=== PATIENT | female | born 1960 | race African-American/Black ===

== ENCOUNTER 2016-08-15 15:31 | Emergency (ER) | payer MEDICAID ==
[~2016-08-15] VITALS: Ht 167.6 cm; Wt 127.0 kg
[~2016-08-15 15:31] MED LIST: ALBUTEROL SULF8.5 GM INH; AMOXICILLIN500 M1 PO; AMOXICILLIN500 MG ORAL; ATORVASTATIN CA10 MG ORAL; AZITHROMYCIN250 MG ORAL; BENAZEPRIL HCL10 MG ORAL; BENAZEPRIL HCL20 MG ORAL; DOXYCYCLINE MO100 MG ORAL; FUROSEMIDE20 M1 ORAL; IBUPROFEN600 MG ORAL; KEFLEX500 MG ORAL; MEDICOOL'S DIA1 EAC1 MC; NAPROSYN500 M1 ORAL; NEXIUM20 MG ORAL; PHENERGAN/CODE120 ML ORAL; TRAMADOL HCL50 MG ORAL; ZITHROMAX250 MG ORAL
[2016-08-15 15:44] VITALS: BP 147/86
--- NOTE | 2016-08-15 16:18 | Emergency Room Report ---
History of Present Illness General Chief Complaint: Upper Respiratory Illness Source: Patient Present Illness [facility] The patient is a 55-year-old female presenting with 3 days of dry cough, right ear pain, subjective fever, and chest congestion which began 3 days prior. The patient denies any other symptoms. The patient denies chest pain, shortness of breath, nausea, vomiting, headache Allergies: Coded Allergies: No Known Allergies (Verified Allergy, Unknown, 05/30/10) Patient History Past Medical History: see triage record Pertinent Family History: none Now: No Reviewed Nursing Documentation: PMH: Agreed, PSxH: Agreed Nursing Documentation-PMH Hx Cardiac Problems: No Hx Hypertension: Yes Hx Asthma: No - BRONCHITIS Hx Cancer: Yes - Dbl masectomy Breast Hx Gastrointestinal Problems: No Hx Dialysis: No Hx Neurological Problems: No Review of Systems All Other Systems: negative except mentioned in HPI Physical Exam Vital Signs Date Time Temp Pulse Resp B/P Pulse Ox O2 Delivery O2 Flow Rate FiO2 08/15/16 15:39 98.2 75 19 147/86 97 Room Air Sp02 EP Interpretation: reviewed, normal General Appearance: no apparent distress, alert, GCS 15, non-toxic Head: normocephalic, atraumatic Eyes: bilateral eye PERRL, bilateral eye normal inspection ENT: hearing grossly normal, normal pharynx, no angioedema, normal voice, other - R ear EAC: edema, erythema, white DC Neck: full range of motion, supple/symm/no masses Respiratory: chest non-tender, lungs clear, normal breath sounds, no wheezing, speaking full sentences Cardiovascular #1: regular rate, rhythm, no edema Gastrointestinal: normal bowel sounds, non tender, soft, non-distended, no guarding, no rebound Musculoskeletal: back normal, gait/station normal, normal range of motion, non- tender Neurologic: alert, oriented x3, responsive, motor strength/tone normal, sensory intact, speech normal Psychiatric: judgement/insight normal, memory normal, mood/affect normal, no suicidal/homicidal ideation Skin: normal color, no rash, warm/dry, well hydrated Medical Decision Making PA Attestation Dr. Bañuelos is my supervising physician. Patient management was discussed with my supervising physician Diagnostic Impression: Primary Impression: Otitis externa of right ear Additional Impression: Allergic rhinitis ER Course The patient is a 55-year-old female presenting with 3 days of dry cough, right ear pain, subjective fever, and chest congestion which began 3 days prior. Differential diagnosis include but not limited to otitis externa, otitis media, mastoiditis, sinusitis, pharyngitis, allergies PE:Vitals within normal limits. No apparent distress. Right ear: External auditory canal is edematous, erythematous, with white discharge. Tympanic membranes intact. No bulging There is nasal congestion. Lungs clear to auscultation bilaterally Otherwise exam unremarkable The patient is asking for breathing treatments. No change in breath sounds after treatment. The patient will be discharged home with a prescription for Cortisporin and Claritin. ER precautions are given Last Vital Signs Date Time Temp Pulse Resp B/P Pulse Ox O2 Delivery O2 Flow Rate FiO2 08/15/16 15:39 98.2 75 19 147/86 97 Room Air Status: improved Disposition: HOME, SELF-CARE Condition: Improved Scripts Neomycin/Polymyxin B Sulf/Hc* (CORTISPORIN EAR SOLUTION*) 10 Ml Solution 4 DROP RIGHT EAR QID, #10 ML 0 Refills Prov: FRANCIE ZARAGOZA 08/15/16 Loratadine/Pseudoephedrine (CLARITIN-D 24 HOUR TABLET) 1 Each Tab.er.24h 1 TAB PO DAILY, #30 TAB Prov: RFANCIE ZARAGOZA 08/15/16 Referrals: NOT CHOSEN BYRON/,REFERRING (PCP) FRANCIE ZARAGOZA Aug 15, 2016 16:18
[2016-08-15] MEDS ORDERED: Albuterol ud Inhalation HHN ONE (16:30)
[2016-08-15] MEDS ORDERED: Ipratropium 0.02% Inh Soln 2.5ml UD HHN ONE (16:30)
[2016-08-15] MEDS ORDERED: CORTISPORIN EAR10 ML RIGHT EAR (16:57)
[2016-08-15] MEDS ORDERED: CLARITIN-D 241 EACH PO (16:57)
[2016-08-15 17:05] VITALS: BP 139/89
[2016-08-15 17:06] VITALS: BP 147/86
== END 2016-08-15 17:06 | disposition home or self-care (01) ==
LOC: EMR 16:02
DX: H60.91 Unspecified otitis externa, right ear (principal); J30.9 Allergic rhinitis, unspecified; I10 Essential (primary) hypertension; Z85.3 Personal history of malignant neoplasm of breast; Z90.13 Acquired absence of bilateral breasts and nipples
CPT/HCPCS: 94640; 94664; 99284

== ENCOUNTER 2016-08-25 12:49 | Emergency (ER) | payer MEDICAID ==
[~2016-08-25] VITALS: Ht 167.6 cm; Wt 130.2 kg
[~2016-08-25 12:49] MED LIST changes: +CLARITIN-D 241 EACH PO; +CORTISPORIN EAR10 ML RIGHT EAR
[2016-08-25 13:06] VITALS: BP 160/84
[2016-08-25] MEDS ORDERED: Bacitracin Oint UD TOPIC ONE (13:15)
[2016-08-25] MEDS ORDERED: ACETAMINOPHEN-1 EAC1 ORAL (13:20)
--- NOTE | 2016-08-25 13:24 | Emergency Room Report ---
History of Present Illness General Chief Complaint: Head, Face, Neck Trauma Source: Medical Record Present Illness HPI The patient is a 55-year-old female presenting with a scalp laceration. The patient states that she was walking down the stairs, slipped, and hit the back of her head on a brick. The patient denies loss of consciousness, blurred vision, or dizziness. The patient does admit to a 9/10 pounding headache to the rear of the head. The patient states that she has taken Aleve with only minimal relief of the pain. The patient denies taking any blood thinners including aspirin. Patient denies prior injury of the head. The patient denies nausea, vomiting, fever, chills, chest pain, shortness of breath The patient is up-to-date with tetanus vaccination Allergies: Coded Allergies: No Known Allergies (Verified Allergy, Unknown, 05/30/10) Patient History Past Medical History: see triage record Pertinent Family History: none Last Menstrual Period: post Now: No : 1 Para: 1 Immunizations: UTD Reviewed Nursing Documentation: PMH: Agreed, PSxH: Agreed Nursing Documentation-PMH Past Medical History: No History, Except For Hx Cardiac Problems: No Hx Hypertension: Yes Hx Asthma: No - BRONCHITIS Hx Cancer: Yes - Dbl masectomy Breast Hx Gastrointestinal Problems: No Hx Dialysis: No Hx Neurological Problems: No Review of Systems All Other Systems: negative except mentioned in HPI Physical Exam Vital Signs Date Time Temp Pulse Resp B/P Pulse Ox O2 Delivery O2 Flow Rate FiO2 08/25/16 13:02 98.2 72 22 160/84 97 Room Air Sp02 EP Interpretation: reviewed, normal General Appearance: no apparent distress, alert, GCS 15, non-toxic Head: normocephalic, other - laceration to posterior scalp Eyes: bilateral eye PERRL, bilateral eye normal inspection ENT: hearing grossly normal, normal pharynx, no angioedema, normal voice Neck: full range of motion, supple/symm/no masses Musculoskeletal: back normal, gait/station normal, normal range of motion, non- tender Neurologic: alert, oriented x3, responsive, motor strength/tone normal, sensory intact, speech normal Psychiatric: judgement/insight normal, memory normal, mood/affect normal, no suicidal/homicidal ideation Skin: warm/dry, palpation normal, laceration - 3cm linear to posterior scalp Lymphatic: no adenopathy Procedures Laceration/Wound Repair Laceration/Wound Repair : Consent: Verbal Wound Location: head Wound's Depth, Shape: superficial Wound Length (cm): 3 Wound Explored: clean Irrigated w/ Saline (ccs): 100 Betadine Prep?: Yes Volume Anesthetic (ccs): 0 Wound Debrided: minimal Wound Repaired With: francois Layer Closure?: No Sterile Dressing Applied?: No Splint Applied?: No Sling Applied?: No Patient Tolerated: Well Complications: None Medical Decision Making PA Attestation Dr. Gracia is my supervising physician. Patient management was discussed with my supervising physician Diagnostic Impression: Primary Impression: Scalp laceration ER Course The patient is a 55-year-old female presenting with a laceration to the posterior scalp after falling today. Differential diagnosis considered: Laceration, contusion, fracture, concussion PE: Vitals WNL. NAD. Head: 3cm linear laceration over posterior scalp. No ecchymosis. No depression. Minimal bleeding. No other signs of trauma. 3cm linear laceration over posterior scalp cleaned with NS and betadine. three francois were used to close the wound. Well approximated. The patient tolerated this well.Bacitracin was placed The patient will follow up with primary care physician in 10 days for wound check and staple removal. ER precautions are given Last Vital Signs Date Time Temp Pulse Resp B/P Pulse Ox O2 Delivery O2 Flow Rate FiO2 08/25/16 13:06 98.2 72 22 160/84 97 Room Air Status: improved Disposition: HOME, SELF-CARE Condition: Improved Scripts Acetaminophen With Codeine (T#3) (TYLENOL #3 TAB*) Y Tab 1 TAB ORAL Q6HR Y for For Pain, #8 TAB Prov: FRANCIE ZARAGOZA 08/25/16 Patient Instructions: Stitches, Bittinger, or Adhesive Wound Closure Additional Instructions: I discussed my findings with the patient. All questions and concerns have been answered. Treatment and medication compliance have been addressed. I advised the patient that they need to follow up with PMD in 3-5 days. Return to ED if symptoms worsen, new symptoms arise, or if needed for any reason. Patient verbalized understanding of discharge instructions. The patient is advised she needs to follow up with primary care physician or return to the ER in 10 days for removal of francois and wound check. The patient will keep the wound clean and dry. FRANCIE ZARAGOZA Aug 25, 2016 13:24
[2016-08-25 13:32] VITALS: BP 160/84
== END 2016-08-25 13:30 | disposition home or self-care (01) ==
LOC: EMR 13:27
DX: S01.01XA Laceration without foreign body of scalp, initial encounter (principal); W10.9XXA Fall (on) (from) unspecified stairs and steps, initial encounter; Y92.9 Unspecified place or not applicable; I10 Essential (primary) hypertension; Z85.3 Personal history of malignant neoplasm of breast; Z90.10 Acquired absence of unspecified breast and nipple
CPT/HCPCS: 12002; 99284; Z7502

== ENCOUNTER 2016-09-02 21:20 | Emergency (ER) | payer MEDICAID ==
[~2016-09-02] VITALS: Ht 160 cm; Wt 93.0 kg
[~2016-09-02 21:20] MED LIST changes: +ACETAMINOPHEN-1 EAC1 ORAL
[2016-09-02 21:28] VITALS: BP 159/86
--- NOTE | 2016-09-02 21:41 | Emergency Room Report ---
History of Present Illness General Chief Complaint: Pain Source: Patient Present Illness HPI This is a 55-year-old female who presents with chief complaint of left shoulder and out bone pain to she slipped and fell on her buttock a week ago. She was seen here and had CT scan her head. That was negative. Now she complaining of left shoulder pain. Can't lift it up past 90. Also with tailbone pain. Denies any other injury. Has not taken to [place] out or Tylenol with codeine because it upset her stomach. Pain is 7/10. Worse with movement. No nausea no vomiting. No seizure activity. Allergies: Coded Allergies: No Known Allergies (Verified Allergy, Unknown, 05/30/10) Patient History Past Medical History: see triage record, old chart reviewed Past Surgical History: other Pertinent Family History: none Social History: Denies: drug use Now: No Immunizations: other Reviewed Nursing Documentation: PMH: Agreed, PSxH: Agreed Nursing Documentation-PMH Past Medical History: No History, Except For Hx Cardiac Problems: No Hx Hypertension: Yes Hx Asthma: No - BRONCHITIS Hx Cancer: Yes - Dbl masectomy Breast Hx Gastrointestinal Problems: No Hx Dialysis: No Hx Neurological Problems: No Review of Systems Eye: Denies: blurred vision, eye pain ENT: Denies: ear pain, nose congestion, throat swelling Respiratory: Denies: cough, shortness of breath Cardiovascular: Denies: chest pain, palpitations Gastrointestinal: Denies: abdominal pain, diarrhea, nausea, vomiting Musculoskeletal: Reports: joint pain, Denies: back pain Skin: Denies: rash Neurological: Denies: headache, numbness Endocrine: Denies: increased thirst, increased urine Hematologic/Lymphatic: Denies: easy bruising All Other Systems: negative except mentioned in HPI Physical Exam Vital Signs Date Time Temp Pulse Resp B/P Pulse Ox O2 Delivery O2 Flow Rate FiO2 09/02/16 21:25 98.1 82 16 159/86 99 Room Air vitals with hypertension Sp02 EP Interpretation: reviewed, normal General Appearance: well appearing, no apparent distress, alert, obese Head: normocephalic, atraumatic Eyes: bilateral eye EOMI, bilateral eye PERRL ENT: hearing grossly normal, normal pharynx Neck: full range of motion, supple, no meningismus Respiratory: chest non-tender, lungs clear, normal breath sounds Cardiovascular #1: regular rate, rhythm, no murmur Gastrointestinal: normal bowel sounds, non tender, no mass, no organomegaly, no bruit, non-distended Musculoskeletal: back normal, gait/station normal, normal range of motion, other - left shoulder: TTP diffusely. Decreased ROM past 90 degrees. TTP over coccyx. Neurologic: alert, oriented x3 Psychiatric: mood/affect normal Skin: warm/dry Medical Decision Making Diagnostic Impression: Primary Impression: Left shoulder strain Qualified Codes: S46.912A - Strain of unspecified muscle, fascia and tendon at shoulder and upper arm level, left arm, initial encounter Additional Impression: Coccyx contusion Qualified Codes: S30.0XXA - Contusion of lower back and pelvis, initial encounter ER Course Patient presents with a fall last week. No fracture dislocation. We'll discharge home. Other X-Ray Diagnostic Results Other X-Ray Diagnostic Results : X-Ray Ordered: left shoulder xrays Date: Sep 02, 2016 Time: 22:33 EP Interpretation: Yes Findings: no fractures, no dislocation, no soft tissue swelling Number of Views: 3 Other Impression Xrays sacral/coccyx: Interpreted by me. 3 views. No frx, dislocation, STS or FB. Last Vital Signs Date Time Temp Pulse Resp B/P Pulse Ox O2 Delivery O2 Flow Rate FiO2 09/02/16 21:28 98.1 82 16 159/86 99 Room Air Status: improved Disposition: HOME, SELF-CARE Condition: Stable Scripts Ibuprofen* (MOTRIN*) 600 Mg Tablet 600 MG ORAL THREE TIMES A DAY, #30 TAB 0 Refills Prov: TAI BARNARD M.D. 09/02/16 Additional Instructions: Followup with your DrMimi in 7 days. Return for increasing pain, fever, chills, or any concern. TAI BARNARD M.D. Sep 02, 2016 21:41
[2016-09-02 22:30] VITALS: BP 145/75
[2016-09-02] MEDS ORDERED: IBUPROFEN600 MG ORAL (22:34)
[2016-09-02 22:43] VITALS: BP 145/75
--- NOTE | 2016-09-03 11:14 | Diagnostic Imaging Report ---
Indication: Back pain Comparison: None Findings: 3 views of the sacrum and coccyx were obtained. There is asymmetry and slight posterior subluxation of one of the coccygeal segments. This is consistent with an injury but acuity of injury is unknown. The sacroiliac are symmetric. No fracture of the sacrum seen. Impression: Evidence of a coccygeal injury. Acuity of this is unknown. No evidence of a sacral injury.
--- NOTE | 2016-09-03 11:14 | Diagnostic Imaging Report ---
Indication: Pain Findings: 3 views of the left shoulder were obtained. Alignment of the left shoulder is normal. No acute fracture is identified. Soft tissues are unremarkable. Impression: Negative left shoulder examination
== END 2016-09-02 22:43 | disposition home or self-care (01) ==
LOC: EMR 21:40
DX: S46.912A Strain of unspecified muscle, fascia and tendon at shoulder and upper arm level, left arm, initial encounter (principal); S30.0XXA Contusion of lower back and pelvis, initial encounter; W01.0XXA Fall on same level from slipping, tripping and stumbling without subsequent striking against object, initial encounter; Y92.9 Unspecified place or not applicable; Z90.10 Acquired absence of unspecified breast and nipple; I10 Essential (primary) hypertension
CPT/HCPCS: 72220; 99283

== ENCOUNTER 2016-12-30 14:54 | Emergency (ER) | payer MEDICAID ==
[~2016-12-30] VITALS: Ht 167.6 cm; Wt 129.3 kg
[2016-12-30] MEDS ORDERED: HYDROCHLOROTH12.5 M2 ORAL (15:15)
[2016-12-30 16:00] VITALS: BP 153/80
[2016-12-30] MEDS ORDERED: Ketorolac 60mg Inj IM ONE (16:00)
--- NOTE | 2016-12-30 16:02 | Emergency Room Report ---
History of Present Illness General Chief Complaint: Upper Extremity Injury Source: Patient, Medical Record Present Illness HPI [id number] walk in with left shoulder pain, constant, non-radiating, since last night. Atraumatic. No associated fever/chills, chest pain, SOB,abd pain, headache. Has had previously with ED visit showing no acute fx on xray. Taking ibuprofen/tramadol at home. History of HLD. Denies smoking, ETOH, drug use. Allergies: Coded Allergies: No Known Allergies (Verified Allergy, Unknown, 05/30/10) Patient History Past Medical History: other - HLD Past Surgical History: none Pertinent Family History: none Social History: Denies: alcohol use, drug use, smoking Now: No : 2 Para: 1 Immunizations: UTD Reviewed Nursing Documentation: PMH: Agreed, PSxH: Agreed Nursing Documentation-PMH Hx Cardiac Problems: No Hx Hypertension: Yes Hx Cancer: Yes - Dbl masectomy Breast Hx Gastrointestinal Problems: No Hx Dialysis: No Hx Neurological Problems: No Review of Systems All Other Systems: negative except mentioned in HPI Physical Exam Vital Signs Date Time Temp Pulse Resp B/P Pulse Ox O2 Delivery O2 Flow Rate FiO2 12/30/16 15:08 98.1 71 16 153/82 99 Room Air Sp02 EP Interpretation: reviewed, normal General Appearance: normal inspection, well appearing, no apparent distress, alert, GCS 15, non-toxic Head: normocephalic, atraumatic Eyes: bilateral eye EOMI, bilateral eye PERRL ENT: normal ENT inspection, hearing grossly normal, normal voice Neck: normal inspection, full range of motion, supple, no bony tend Respiratory: normal inspection, lungs clear, normal breath sounds, no respiratory distress, no retraction, no wheezing Cardiovascular #1: regular rate, rhythm, no edema Gastrointestinal: normal inspection, normal bowel sounds, non tender, soft, no guarding, no hernia Genitourinary: no CVA tenderness Musculoskeletal: normal inspection, back normal, normal range of motion, Stephani' s Sign negative, other - Point ttp to left deltoid. No reduced ROM. 2++ distal radius pulse right hand. Neurologic: normal inspection, alert, oriented x3, responsive, drawer fitter III-XII nml as tested, motor strength/tone normal, speech normal Psychiatric: normal inspection, judgement/insight normal, mood/affect normal Skin: normal inspection, normal color, no rash Medical Decision Making Diagnostic Impression: Primary Impression: Left shoulder pain Qualified Codes: M25.512 - Pain in left shoulder ER Course left shoulder pain since last night CAD risk factors HLD only alhtough patient is hypertensive here, likely d/t pain Screening ECG shows no ischemia. No ST elevation or TWI. Unlikely ACS given well appearance, duration of symptoms, focal ttp to left shoulder and ECG without ischemia Improved symptoms after IM toradol Rx Robaxin PMD followup DC home EKG Diagnostic Results Rate: normal Rhythm: NSR ST Segments: no acute changes ASA given to the pt in ED: No Rhythm Strip Diag. Results EP Interpretation: yes Rate: 69 Rhythm: NSR, no PVC's, no ectopy Last Vital Signs Date Time Temp Pulse Resp B/P Pulse Ox O2 Delivery O2 Flow Rate FiO2 12/30/16 15:08 98.1 71 16 153/82 99 Room Air Status: improved Disposition: HOME, SELF-CARE TERESA GAMEZ M.D. December 30, 2016 16:02
[2016-12-30] MEDS ORDERED: ROBAXIN-750750 MG PO (16:04)
[2016-12-30 16:12] VITALS: BP 153/80
--- NOTE | 2017-01-02 07:55 | Cardiology Report ---
APPROVED REPORT EKG Measurement Heart [id number] CO [id number] Normal sinus rhythm Cannot rule out Anterior infarct, age undetermined Abnormal ECG
== END 2016-12-30 16:45 | disposition home or self-care (01) ==
LOC: EMR 16:38
DX: M25.512 Pain in left shoulder (principal); I10 Essential (primary) hypertension; Z85.3 Personal history of malignant neoplasm of breast; Z90.10 Acquired absence of unspecified breast and nipple
CPT/HCPCS: 93005; 96372; 99283

== ENCOUNTER 2018-05-26 07:22 | Emergency (ER) | payer MEDICAID ==
[~2018-05-26] VITALS: Ht 167.6 cm; Wt 134.7 kg
[~2018-05-26 07:22] MED LIST changes: +HYDROCHLOROTH12.5 M2 ORAL; +ROBAXIN-750750 MG PO
[2018-05-26] MEDS ORDERED: LORazepam Inj 2mg/ml 1ml IV ONE (08:00)
[2018-05-26 08:14] VITALS: BP 132/47
[2018-05-26 08:34] LABS: BASOPHILS % (AUTO) 0.9 % (0.0-2.0); EOSINOPHILS % (AUTO) 2.6 % (0.0-3.0); HEMATOCRIT 42.9 % (37.0-47.0); HEMOGLOBIN 13.6 G/DL (12.0-16.0); LYMPHOCYTES % (AUTO) 20.7 % (20.0-45.0); MEAN CORPUSCULAR VOLUME 79 FL (80-99); MONOCYTES % (AUTO) 7.8 % (1.0-10.0); PLATELET COUNT 225 K/UL (150-450); RED BLOOD COUNT 5.41 M/UL (4.20-5.40); RED CELL DISTRIBUTION WIDTH 12.7 % (11.6-14.8); WHITE BLOOD COUNT 8.2 K/UL (4.8-10.8)
[2018-05-26 08:38] VITALS: BP_SYST 132; BP_SYST 140; BP_DIAS 47; BP_DIAS 48; BP_DIAS 61
[2018-05-26 08:45] LABS: ANION GAP 8 mmol/L (5-15); BLOOD UREA NITROGEN 15 mg/dL (7-18); CARBON DIOXIDE 28 MMOL/L (21-32); CHLORIDE 104 MMOL/L (98-107); CREATININE 0.8 MG/DL (0.55-1.30); POTASSIUM 4.1 MMOL/L (3.5-5.1); SODIUM 140 MMOL/L (136-145)
[2018-05-26 09:04] LABS: ALANINE AMINOTRANSFERASE 27 U/L (12-78); ALBUMIN 3.3 G/DL (3.4-5.0); ALBUMIN/GLOBULIN RATIO 0.7 (1.0-2.7); ALKALINE PHOSPHATASE 147 U/L (46-116); ASPARTATE AMINO TRANSFERASE 17 U/L (15-37); BILIRUBIN,TOTAL 0.4 MG/DL (0.2-1.0); CREATINE KINASE 113 U/L (26-308)
--- NOTE | 2018-05-26 09:25 | Diagnostic Imaging Report ---
EXAM: XR Chest, 1 View CLINICAL HISTORY: DIZZY TECHNIQUE: Frontal view of the chest. COMPARISON: Chest x-ray 02/24/15 FINDINGS: Lungs: Mild right lower lung opacity may be pneumonia. Pleural space: Unremarkable. No pneumothorax. Heart: Cardiomegaly. Mediastinum: Unremarkable. Bones/joints: Unremarkable. IMPRESSION: 1. Cardiomegaly. 2. Mild right lower lung opacity may be pneumonia.
--- NOTE | 2018-05-26 09:27 | Emergency Room Report ---
History of Present Illness General Chief Complaint: Dizziness Source: Patient Present Illness HPI Patient presents with over a week of dizziness. She has a history of vertigo but states this feels different to her. She denies any tinnitus or ear pain at this time. She's tried meclizine and this hasn't helped. She feels that the world is spinning when she changes position but also feels that she is about to fall over. She feels resting dizziness. She denies any nausea or vomiting. She states that it takes a lot for her to vomit. This feels different than her usual vertigo. It's been several years since she had a CT scan. This was done when she had staging for breast cancer. She states it was negative at that time. She denies headache, fevers or change in vision, weakness. The patient states that she drinks a lot of water and urinates quite frequently. She denies dysuria at this time. Also she is not treated for diabetes and denies family history of this. NO joint pain, abdominal pain, neck pain. No anxiety. Allergies: Coded Allergies: No Known Allergies (Verified Allergy, Unknown, 05/30/10) Patient History Past Medical History: see triage record Past Surgical History: other - masecomies Social History: Denies: smoking Social History Narrative from home with son Last Menstrual Period: na Reviewed Nursing Documentation: PMH: Agreed; PSxH: Agreed Nursing Documentation-PMH Past Medical History: No History, Except For Hx Cardiac Problems: No Hx Hypertension: Yes Hx Cancer: Yes - Dbl masectomy Breast Hx Gastrointestinal Problems: No Hx Dialysis: No Hx Neurological Problems: No Review of Systems All Other Systems: negative except mentioned in HPI Physical Exam Vital Signs Date Time Temp Pulse Resp B/P (MAP) Pulse Ox O2 Delivery O2 Flow Rate FiO2 05/26/18 07:30 98.4 77 18 127/72 97 Room Air 98.4 Sp02 EP Interpretation: reviewed, normal General Appearance: well appearing, no apparent distress, GCS 15 Head: normocephalic, atraumatic Eyes: bilateral eye normal inspection, bilateral eye PERRL, bilateral eye EOMI - no nystagmus ENT: moist mucus membranes, other - cerumen bilat Neck: supple Respiratory: lungs clear, normal breath sounds Cardiovascular #1: regular rate, rhythm Cardiovascular #2: 2+ radial (R) Gastrointestinal: normal inspection, normal bowel sounds, non tender, no mass, non-distended, overweight Musculoskeletal: back normal, gait/station normal, normal range of motion Neurologic: alert, oriented x3, range technician III-XII nml as tested, motor strength/tone normal, DTRs symmetric, sensory intact, cerebellar normal, normal gait, speech normal Psychiatric: mood/affect normal Skin: normal inspection, warm/dry Medical Decision Making Diagnostic Impression: Primary Impression: Dizziness ER Course Patient presents with dizziness without nausea or vomiting. Differential includes cerebellar infarct, vertigo, dehydration, labyrinthitis amongst others. The fact she has breast cancer makes her slightly at risk for some some cerebral process. The patient will be evaluated with EKG, CT of the head, chest x-ray and labs including sedimentation rate. The patient will be treated with Zofran and Ativan as meclizine has not been helpful to. The fact she does not have nausea suggests more central cause. The patient is not orthostatic. EKG sinus rhythm LVH nonspecific ST-T wave changes. Chest x-ray questionable R infiltrate. Labs with normal CBC with elevated ESR. CMP normal. Normal UA and TSH. Patient improved with treatment. Discussed need to see PMD for further evaluation and w/u. Discussed CXR with patient. Patient stable for outpatient observation and treatment. Laboratory Tests Test 05/26/18 08:20 05/26/18 10:24 White Blood Count 8.2 K/UL (4.8-10.8) Red Blood Count 5.41 M/UL (4.20-5.40) H Hemoglobin 13.6 G/DL (12.0-16.0) Hematocrit 42.9 % (37.0-47.0) Mean Corpuscular Volume 79 FL (80-99) L Mean Corpuscular Hemoglobin 25.1 PG (27.0-31.0) L Mean Corpuscular Hemoglobin Concent 31.6 G/DL (32.0-36.0) L Red Cell Distribution Width 12.7 % (11.6-14.8) Platelet Count 225 K/UL (150-450) Mean Platelet Volume 10.7 FL (6.5-10.1) H Neutrophils (%) (Auto) 68.0 % (45.0-75.0) Lymphocytes (%) (Auto) 20.7 % (20.0-45.0) Monocytes (%) (Auto) 7.8 % (1.0-10.0) Eosinophils (%) (Auto) 2.6 % (0.0-3.0) Basophils (%) (Auto) 0.9 % (0.0-2.0) Erythrocyte Sedimentation Rate 55 MM/HR (0-30) H Prothrombin Time 10.8 SEC (9.30-11.50) Prothrombin Time INR 1.0 (0.9-1.1) PTT 25 SEC (23-33) Sodium Level 140 MMOL/L (136-145) Potassium Level 4.1 MMOL/L (3.5-5.1) Chloride Level 104 MMOL/L (98-107) Carbon Dioxide Level 28 MMOL/L (21-32) Anion Gap 8 mmol/L (5-15) Blood Urea Nitrogen 15 mg/dL (7-18) Creatinine 0.8 MG/DL (0.55-1.30) Estimate Glomerular Filtration Rate > 60 mL/min (>60) Glucose Level 123 MG/DL (74-106) H Calcium Level 9.0 MG/DL (8.5-10.1) Total Bilirubin 0.4 MG/DL (0.2-1.0) Aspartate Amino Transferase (AST) 17 U/L (15-37) Alanine Aminotransferase (ALT) 27 U/L (12-78) Alkaline Phosphatase 147 U/L (46-116) H Total Creatine Kinase 113 U/L (26-308) Troponin I 0.000 ng/mL (0.000-0.056) Pro-B-Type Natriuretic Peptide 234 pg/mL (0-125) H Total Protein 8.2 G/DL (6.4-8.2) Albumin 3.3 G/DL (3.4-5.0) L Globulin 4.9 g/dL Albumin/Globulin Ratio 0.7 (1.0-2.7) L Thyroid Stimulating Hormone (TSH) 2.859 uiU/mL (0.358-3.740) Urine Color Pale yellow Urine Appearance Clear Urine pH 6 (4.5-8.0) Urine Specific [place] 1.010 (1.005-1.035) Urine Protein 2+ (NEGATIVE) H Urine Glucose (UA) Negative (NEGATIVE) Urine Ketones Negative (NEGATIVE) Urine Blood Negative (NEGATIVE) Urine Nitrite Negative (NEGATIVE) Urine Bilirubin Negative (NEGATIVE) Urine Urobilinogen Normal MG/DL (0.0-1.0) Urine Leukocyte Esterase Negative (NEGATIVE) Urine RBC 0-2 /HPF (0 - 2) Urine WBC 0 /HPF (0 - 2) Urine Squamous Epithelial Cells Occasional /LPF Urine Bacteria Occasional /HPF (NONE) EKG Diagnostic Results Rate: normal Rhythm: NSR ST Segments: no acute changes Rhythm Strip Diag. Results EP Interpretation: yes Rhythm: NSR, no PVC's, no ectopy Chest X-Ray Diagnostic Results Chest X-Ray Diagnostic Results : Chest X-Ray Ordered: Yes # of Views/Limited/Complete: 1 View Indication: Other EP Interpretation: Yes Interpretation: no effusion, no pneumothorax, other - increased frost R LL Impression: Other Electronically Signed by: Electronically signed by Morgan Paz MD CT/MRI/US Diagnostic Results CT/MRI/US Diagnostic Results : Imaging Test Ordered: head Impression normal CT Last Vital Signs Date Time Temp Pulse Resp B/P (MAP) Pulse Ox O2 Delivery O2 Flow Rate FiO2 05/26/18 11:01 98.4 74 20 137/62 99 Room Air 98.4 Status: improved Disposition: HOME, SELF-CARE Condition: Improved Scripts Lorazepam* (ATIVAN*) 0.5 Mg Tablet 0.5 MG ORAL THREE TIMES A DAY PRN for dizziness, #10 TAB Prov: Morgan Paz M.D. 05/26/18 Ondansetron Odt* (ZOFRAN ODT*) 4 Mg Tab.rapdis 4 MG BC EVERY 8 HOURS, #6 TAB 2 Refills Prov: Morgan Paz M.D. 05/26/18 Referrals: NON PHYSICIAN (PCP) Morgan Paz M.D. May 26, 2018 09:27
--- NOTE | 2018-05-26 09:56 | Diagnostic Imaging Report ---
EXAM: CT Head Without Intravenous Contrast CLINICAL HISTORY: DIZZY TECHNIQUE: Axial computed tomography images of the head/brain without intravenous contrast. CTDI is 70.38 mGy and DLP is 1368 mGy-cm. One or more of the following dose reduction techniques were used: automated exposure control, adjustment of the mA and/or kV according to patient size, use of iterative reconstruction technique. COMPARISON: No relevant prior studies available. FINDINGS: Brain: Unremarkable. No hemorrhage. No significant white matter disease. No edema. Ventricles: Unremarkable. No ventriculomegaly. Bones/joints: Unremarkable. No acute fracture. Soft tissues: Unremarkable. Sinuses: Unremarkable as visualized. No acute sinusitis. Mastoid air cells: Unremarkable as visualized. No mastoid effusion. IMPRESSION: Unremarkable head/brain CT.
[2018-05-26 10:32] VITALS: BP 137/62
[2018-05-26 10:40] LABS: APPEARANCE,URINE CLEAR; BILIRUBIN, URINE NEGATIVE (NEGATIVE); COLOR,URINE PALE YELLOW; GLUCOSE, URINE (UA) NEGATIVE (NEGATIVE); KETONES,URINE NEGATIVE (NEGATIVE); LEUKOCYTE ESTERASE ,URINE NEGATIVE (NEGATIVE); NITRITE,URINE NEGATIVE (NEGATIVE); PH,URINE 6 (4.5-8.0); PROTEIN,URINE 2+ (NEGATIVE); UROBILINOGEN,URINE NORMAL MG/DL (0.0-1.0)
[2018-05-26] MEDS ORDERED: ATIVAN0.5 MG ORAL (10:54)
[2018-05-26] MEDS ORDERED: ONDANSETRON ODT4 MG BC (10:54)
[2018-05-26 11:01] VITALS: BP 137/62
--- NOTE | 2018-05-28 16:10 | Cardiology Report ---
APPROVED REPORT EKG Measurement Heart [id number] Normal sinus rhythm Minimal voltage criteria for LVH, may be normal variant Possible Anterior infarct, age undetermined Abnormal ECG
== END 2018-05-26 11:01 | disposition home or self-care (01) ==
LOC: EMR 07:39
DX: R42 Dizziness and giddiness (principal); I10 Essential (primary) hypertension; Z85.3 Personal history of malignant neoplasm of breast; Z90.10 Acquired absence of unspecified breast and nipple
CPT/HCPCS: 36415; 70450; 71045; 80053; 81003; 82550; 83880; 84443; 84484; 85025; 85610; 85651; 85730; 93005; 96361; 96374; 96375; 99284; J2405

== ENCOUNTER 2019-08-18 04:56 | Emergency (ER) | payer MEDICAID ==
[~2019-08-18] VITALS: Ht 167.6 cm; Wt 134.7 kg
[~2019-08-18 04:56] MED LIST changes: +ATIVAN0.5 MG ORAL; +ONDANSETRON ODT4 MG BC
[2019-08-18 05:20] VITALS: BP 120/59
--- NOTE | 2019-08-18 05:23 | NUR ---
ED Nurse Note: Patient walked in to ER c/o left arm pain, SOB, weakness. Patient presente calm, cooperative, AAO x4, VSS at this time. States has Hx of bilateral breast cancer.
--- NOTE | 2019-08-18 05:35 | Emergency Room Report ---
History of Present Illness General Chief Complaint: General Complaint Source: Patient Present Illness [facility] This is a 58-year-old female with history of breast cancer status post bilateral mastectomy. She presents with chief complaint of left arm pain and chest pain. This been ongoing for 3 to 4 days. Is been constant. She is felt weak and tired. Subjective chills and hot flashes. No nausea no vomiting. No exertional component. Most of her chest pain is her left arm and upper axilla chest area. No fever chills but no diarrhea. Pain is 7 out of 10. Nothing made it better. Nothing made it worse. Allergies: Coded Allergies: No Known Allergies (Verified Allergy, Unknown, 05/30/10) Patient History Past Medical History: see triage record, old chart reviewed Past Surgical History: other Pertinent Family History: none Social History: Denies: smoking Now: No Immunizations: other Reviewed Nursing Documentation: PMH: Agreed; PSxH: Agreed Nursing Documentation-PMH Hx Cardiac Problems: Yes Hx Hypertension: Yes Hx Asthma: Yes Hx Cancer: Yes Hx Gastrointestinal Problems: No Hx Dialysis: No Hx Neurological Problems: No Review of Systems Eye: Denies: eye pain, blurred vision ENT: Denies: ear pain, nose congestion, throat swelling Respiratory: Denies: cough, shortness of breath Cardiovascular: Reports: chest pain; Denies: palpitations Gastrointestinal: Denies: abdominal pain, diarrhea, nausea, vomiting Musculoskeletal: Denies: back pain, joint pain Skin: Denies: rash Neurological: Denies: headache, numbness Endocrine: Denies: increased thirst, increased urine Hematologic/Lymphatic: Denies: easy bruising All Other Systems: negative except mentioned in HPI Physical Exam Vital Signs Date Time Temp Pulse Resp B/P (MAP) Pulse Ox O2 Delivery O2 Flow Rate FiO2 08/18/19 05:04 98.2 73 18 120/59 (79) 77 Room Air Vitals normal. Oxygenation is 100 percent on room air Sp02 EP Interpretation: reviewed, normal General Appearance: well appearing, no apparent distress, alert Head: normocephalic, atraumatic Eyes: bilateral eye PERRL, bilateral eye EOMI ENT: hearing grossly normal, normal pharynx Neck: full range of motion, supple, no meningismus Respiratory: chest non-tender, lungs clear, normal breath sounds Cardiovascular #1: regular rate, rhythm, no murmur Gastrointestinal: normal bowel sounds, non tender, no mass, no organomegaly, no bruit, non-distended Musculoskeletal: back normal, normal range of motion, gait/station normal Psychiatric: mood/affect normal Medical Decision Making Diagnostic Impression: Primary Impression: Chest pain Qualified Codes: R07.9 - Chest pain, unspecified ER Course Patient presents with atypical chest pain and arm pain. No evidence of ACS, PE , dissection. Her heart rate is in the 60s range. Oxygenation is 100% on room air. No evidence of infection. Troponin is negative, will discharge home. EKG Diagnostic Results Rate: normal Rhythm: NSR ST Segments: no acute changes ASA given to the pt in ED: Yes Rhythm Strip Diag. Results EP Interpretation: yes Rate: 70 Rhythm: NSR, no PVC's, no ectopy Chest X-Ray Diagnostic Results Chest X-Ray Diagnostic Results : Chest X-Ray Ordered: Yes # of Views/Limited/Complete: 1 View Indication: Chest Pain EP Interpretation: Yes Interpretation: no consolidation, no effusion, no pneumothorax Impression: No acute disease Electronically Signed by: Urbano Taylor MD Last Vital Signs Date Time Temp Pulse Resp B/P (MAP) Pulse Ox O2 Delivery O2 Flow Rate FiO2 08/18/19 05:20 98.2 18 120/59 77 Room Air 08/18/19 05:20 73 Status: improved Disposition: HOME, SELF-CARE Condition: Stable Referrals: DEN NOLAND,REFERRING (PCP) Additional Instructions: Follow-up with your doctor in 7 days. Return if symptoms worsen. Urbano Taylor MD Aug 18, 2019 05:34
[2019-08-18] MEDS ORDERED: Aspirin Baby 81mg ORAL ONE (05:45)
[2019-08-18 06:10] LABS: APPEARANCE,URINE CLEAR; BILIRUBIN, URINE NEGATIVE (NEGATIVE); COLOR,URINE PALE YELLOW; GLUCOSE, URINE (UA) NEGATIVE (NEGATIVE); KETONES,URINE NEGATIVE (NEGATIVE); LEUKOCYTE ESTERASE ,URINE NEGATIVE (NEGATIVE); NITRITE,URINE NEGATIVE (NEGATIVE); PH,URINE 6 (4.5-8.0); PROTEIN,URINE NEGATIVE (NEGATIVE); UROBILINOGEN,URINE NORMAL MG/DL (0.0-1.0)
[2019-08-18 06:11] LABS: BASOPHILS % (AUTO) 0.4 % (0.0-2.0); EOSINOPHILS % (AUTO) 3.8 % (0.0-3.0); HEMATOCRIT 39.2 % (37.0-47.0); HEMOGLOBIN 12.5 G/DL (12.0-16.0); LYMPHOCYTES % (AUTO) 24.7 % (20.0-45.0); MEAN CORPUSCULAR VOLUME 82 FL (80-99); MONOCYTES % (AUTO) 8.4 % (1.0-10.0); NEUTROPHILS % (AUTO) 62.7 % (45.0-75.0); PLATELET COUNT 195 K/UL (150-450); RED BLOOD COUNT 4.76 M/UL (4.20-5.40); RED CELL DISTRIBUTION WIDTH 12.2 % (11.6-14.8); WHITE BLOOD COUNT 9.1 K/UL (4.8-10.8)
[2019-08-18] MEDS ORDERED: IBUPROFEN600 MG ORAL (06:22)
[2019-08-18 06:24] LABS: ANION GAP 6 mmol/L (5-15); BLOOD UREA NITROGEN 18 mg/dL (7-18); CALCIUM 8.4 MG/DL (8.5-10.1); CARBON DIOXIDE 31 MMOL/L (21-32); CHLORIDE 106 MMOL/L (98-107); CREATININE 0.8 MG/DL (0.55-1.30); POTASSIUM 3.9 MMOL/L (3.5-5.1); SODIUM 143 MMOL/L (136-145)
[2019-08-18 06:27] LABS: ALANINE AMINOTRANSFERASE 28 U/L (12-78); ALBUMIN 3.3 G/DL (3.4-5.0); ALBUMIN/GLOBULIN RATIO 0.8 (1.0-2.7); ALKALINE PHOSPHATASE 166 U/L (46-116); ASPARTATE AMINO TRANSFERASE 14 U/L (15-37); BILIRUBIN,TOTAL 0.2 MG/DL (0.2-1.0)
--- NOTE | 2019-08-18 07:19 | NUR ---
ED Nurse Note: Pt cleared by health care Provider for discharge. DC instructions/prescription was given and explained to pt and verbalized understanding of teachings. All medical deviecs such as ID band and iv removed. Pt is AAO x4, ambulatory and left with all personal belongings.
--- NOTE | 2019-08-18 08:35 | Diagnostic Imaging Report ---
Indication: Chest pain Technique: One view of the chest Comparison: 05/26/2018 Findings: Lungs and pleural spaces are clear. Heart size is normal. No significant change Impression: No acute process
== END 2019-08-18 06:40 | disposition home or self-care (01) ==
LOC: EMR 05:27
DX: R07.9 Chest pain, unspecified (principal); M79.602 Pain in left arm; Z90.13 Acquired absence of bilateral breasts and nipples; Z85.9 Personal history of malignant neoplasm, unspecified
CPT/HCPCS: 36415; 71045; 80053; 81003; 84484; 85025; 93005; 96360; J7030; Z7502; 99284

== ENCOUNTER 2020-01-01 04:37 | Inpatient (IN) | payer MEDICAID ==
[2020-01-01] VITALS (7 sets, daily range): BP systolic 121–148; BP diastolic 47–67
[~2020-01-01] VITALS: Ht 167.6 cm; Wt 135.6 kg
--- NOTE | 2020-01-01 04:55 | Emergency Room Report ---
History of Present Illness General Chief Complaint: Nausea, Vomiting, and Diarrhea Source: Patient, Medical Record Present Illness HPI This is a 59-year-old female with a history of breast cancer status post bilateral mastectomy. She also has a history of hypertension and morbid obesity. She presents with chief complaint of chest pain with nausea vomiting and dizziness. Onset tonight. She states she woke up feeling dizzy and had several episode of vomiting. Because of that she also have epigastric pain. No diarrhea. She complained of feeling short of breath and weak. She said that she has bilateral lower extremity swelling for 1 day. Right greater than left. She is compliant with her medication. Pain is epigastric area radiating to her throat. No diaphoresis. No exertional component. Pain is 7 out of 10. Allergies: Coded Allergies: No Known Allergies (Verified Allergy, Unknown, 05/30/10) COVID-19 Screening Contact w/high risk pt: No Recent Travel to affected area: No Experienced COVID-19 symptoms?: No COVID-19 Testing performed SAND OPERATOR: No Patient History Past Medical History: see triage record, old chart reviewed, HTN, CAD Past Surgical History: other Pertinent Family History: none Social History: Denies: smoking Now: No Immunizations: other Reviewed Nursing Documentation: PMH: Agreed; PSxH: Agreed Nursing Documentation-PMH Hx Cardiac Problems: Yes Hx Hypertension: Yes Hx Asthma: Yes Hx Cancer: Yes Hx Gastrointestinal Problems: No Hx Dialysis: No Hx Neurological Problems: No Review of Systems Eye: Denies: eye pain, blurred vision ENT: Denies: ear pain, nose congestion, throat swelling Respiratory: Reports: shortness of breath; Denies: cough Cardiovascular: Reports: chest pain; Denies: palpitations Gastrointestinal: Denies: abdominal pain, diarrhea, nausea, vomiting Musculoskeletal: Denies: back pain, joint pain Skin: Denies: rash Neurological: Denies: headache, numbness Endocrine: Denies: increased thirst, increased urine Hematologic/Lymphatic: Denies: easy bruising All Other Systems: negative except mentioned in HPI Physical Exam Vital Signs Date Time Temp Pulse Resp B/P (MAP) Pulse Ox O2 Delivery O2 Flow Rate FiO2 01/01/20 04:47 Room Air Vitals unremarkable Sp02 EP Interpretation: reviewed, normal General Appearance: well appearing, alert, mild distress, obese Head: normocephalic, atraumatic Eyes: bilateral eye PERRL, bilateral eye EOMI ENT: hearing grossly normal, normal pharynx Neck: full range of motion, supple, no meningismus Respiratory: chest non-tender, lungs clear, normal breath sounds Cardiovascular #1: regular rate, rhythm, no murmur Gastrointestinal: normal bowel sounds, non tender, no mass, no organomegaly, no bruit, non-distended Musculoskeletal: back normal, normal range of motion, swelling - 2+ pitting edema Neurologic: alert, oriented x3 Psychiatric: mood/affect normal Medical Decision Making Diagnostic Impression: Primary Impression: Chest pain Qualified Codes: R07.9 - Chest pain, unspecified Additional Impressions: Acute exacerbation of CHF (congestive heart failure) Qualified Codes: I50.9 - Heart failure, unspecified Morbid obesity with BMI of 45.0-49.9, adult ER Course This patient presents with shortness of breath and chest pain. She also has pedal edema. She has a history of bilateral mastectomy secondary to breast cancer. Because of her complaint, will need to rule out PE also. We will send her for CT scan. Troponin is negative. Labs unremarkable. Because of her risk factor, she will need to be admitted for further work-up. Either admitted versus transfer based on her insurance. Patient was approved for admission here. I contacted Dr. Adames for admission. EKG Diagnostic Results Rate: normal Rhythm: NSR ST Segments: no acute changes Rhythm Strip Diag. Results EP Interpretation: yes Rate: 70 Rhythm: NSR, no PVC's, no ectopy Chest X-Ray Diagnostic Results Chest X-Ray Diagnostic Results : Chest X-Ray Ordered: Yes # of Views/Limited/Complete: 1 View Indication: Chest Pain EP Interpretation: Yes Interpretation: no consolidation, no effusion, no pneumothorax, no acute cardiopulmonary disease, other - Cardiomegaly Impression: No acute disease Electronically Signed by: Urbano Taylor MD Last Vital Signs Date Time Temp Pulse Resp B/P (MAP) Pulse Ox O2 Delivery O2 Flow Rate FiO2 01/01/20 04:47 Room Air Status: improved Disposition: ADMITTED INPATIENT Condition: Serious Urbano Taylor MD January 01, 2020 04:55
[2020-01-01] MEDS ORDERED: Aspirin Baby 81mg ORAL ONE (05:00)
[2020-01-01 05:27] LABS: EOSINOPHILS % (AUTO) 2.9 % (0.0-3.0); HEMATOCRIT 36.6 % (37.0-47.0); LYMPHOCYTES % (AUTO) 33.3 % (20.0-45.0); MEAN CORPUSCULAR VOLUME 78 FL (80-99); MONOCYTES % (AUTO) 8.6 % (1.0-10.0); NEUTROPHILS % (AUTO) 54.2 % (45.0-75.0); PLATELET COUNT 187 K/UL (150-450); WHITE BLOOD COUNT 10.3 K/UL (4.8-10.8)
[2020-01-01 05:32] LABS: ANION GAP 8 mmol/L (5-15); BLOOD UREA NITROGEN 18 mg/dL (7-18); CALCIUM 8.1 MG/DL (8.5-10.1); CARBON DIOXIDE 31 MMOL/L (21-32); CHLORIDE 103 MMOL/L (98-107); POTASSIUM 3.7 MMOL/L (3.5-5.1); SODIUM 142 MMOL/L (136-145)
[2020-01-01 05:44] LABS: ALANINE AMINOTRANSFERASE 54 U/L (12-78); ALBUMIN 3.4 G/DL (3.4-5.0); ALBUMIN/GLOBULIN RATIO 0.8 (1.0-2.7); ALKALINE PHOSPHATASE 151 U/L (46-116); ASPARTATE AMINO TRANSFERASE 34 U/L (15-37); BILIRUBIN,TOTAL 0.2 MG/DL (0.2-1.0)
[2020-01-01] MEDS ORDERED: ASPIR 8181 MG ORAL (05:55)
[2020-01-01] MEDS ORDERED: Omnipaque 350 100ml vial INJ PRN (06:00)
[2020-01-01 06:05] LABS: APPEARANCE,URINE CLEAR; BILIRUBIN, URINE NEGATIVE (NEGATIVE); COLOR,URINE PALE YELLOW; GLUCOSE, URINE (UA) NEGATIVE (NEGATIVE); KETONES,URINE NEGATIVE (NEGATIVE); LEUKOCYTE ESTERASE ,URINE NEGATIVE (NEGATIVE); NITRITE,URINE NEGATIVE (NEGATIVE); PH,URINE 6 (4.5-8.0); PROTEIN,URINE 2+ (NEGATIVE); UROBILINOGEN,URINE NORMAL MG/DL (0.0-1.0)
--- NOTE | 2020-01-01 07:59 | Diagnostic Imaging Report ---
EXAM: CT Angiography Chest With Intravenous Contrast CLINICAL HISTORY: SOB TECHNIQUE: Axial computed tomographic angiography images of the chest with intravenous contrast. CTDI is 291.5 mGy and DLP is 617 mGy-cm. One or more of the following dose reduction techniques were used: automated exposure control, adjustment of the mA and/or kV according to patient size, use of iterative reconstruction technique. MIP reconstructed images were created and reviewed. COMPARISON: 04/15/14 FINDINGS: Pulmonary arteries: Unremarkable. No pulmonary embolism. Aorta: No acute findings. No thoracic aortic aneurysm. Lungs: Unremarkable. No mass. No consolidation. Pleural space: Unremarkable. No significant effusion. No pneumothorax. Heart: Borderline cardiomegaly. No significant pericardial effusion. No evidence of RV dysfunction. Bones/joints: No acute fracture. No dislocation. Soft tissues: Small hiatal hernia. Post surgical changes consistent with bilateral mastectomies. Lymph nodes: Prominent right axillary lymph nodes, though these retain a normal fatty hilum and are most likely reactive. IMPRESSION: No pulmonary embolism.
--- NOTE | 2020-01-01 08:41 | History & Physical ---
History and Physical History & Physicial 59-year-old female with a history of breast cancer status post bilateral mastectomy. She also has a history of hypertension. She presents with chief complaint of chest pain with nausea vomiting and dizziness. Onset tonight. She states she woke up feeling dizzy and had several episode of vomiting. + short of breath and weak. +leg edema. Pain is epigastric area radiating to her throat. No diaphoresis. No exertional component. Allergies: No Known Allergies (Verified Allergy, Unknown, 05/30/10) Past Medical History: breast cancer, HTN, CAD Past Surgical History: other Pertinent Family History: none Social History: no smoking or drinking Physical WDWN NAD clear breath sounds bilaterally without rhonchi or wheeze [id number] without MRG NABS nontender no HSM no CCE nonfocal Labs Test 01/01/20 04:56 01/01/20 05:45 White Blood Count 10.3 K/UL (4.8-10.8) Red Blood Count 4.70 M/UL (4.20-5.40) Hemoglobin 12.0 G/DL (12.0-16.0) Hematocrit 36.6 % (37.0-47.0) Mean Corpuscular Volume 78 FL (80-99) Mean Corpuscular Hemoglobin 25.6 PG (27.0-31.0) Mean Corpuscular Hemoglobin Concent 32.8 G/DL (32.0-36.0) Red Cell Distribution Width 12.0 % (11.6-14.8) Platelet Count 187 K/UL (150-450) Mean Platelet Volume 9.9 FL (6.5-10.1) Neutrophils (%) (Auto) 54.2 % (45.0-75.0) Lymphocytes (%) (Auto) 33.3 % (20.0-45.0) Monocytes (%) (Auto) 8.6 % (1.0-10.0) Eosinophils (%) (Auto) 2.9 % (0.0-3.0) Basophils (%) (Auto) 1.0 % (0.0-2.0) Sodium Level 142 MMOL/L (136-145) Potassium Level 3.7 MMOL/L (3.5-5.1) Chloride Level 103 MMOL/L (98-107) Carbon Dioxide Level 31 MMOL/L (21-32) Anion Gap 8 mmol/L (5-15) Blood Urea Nitrogen 18 mg/dL (7-18) Creatinine 1.0 MG/DL (0.55-1.30) Estimat Glomerular Filtration Rate > 60 mL/min (>60) Glucose Level 157 MG/DL (74-106) Calcium Level 8.1 MG/DL (8.5-10.1) Total Bilirubin 0.2 MG/DL (0.2-1.0) Aspartate Amino Transf (AST/SGOT) 34 U/L (15-37) Alanine Aminotransferase (ALT/SGPT) 54 U/L (12-78) Alkaline Phosphatase 151 U/L (46-116) Troponin I 0.000 ng/mL (0.000-0.056) Pro-B-Type Natriuretic Peptide 353 pg/mL (0-125) Total Protein 7.5 G/DL (6.4-8.2) Albumin 3.4 G/DL (3.4-5.0) Globulin 4.1 g/dL Albumin/Globulin Ratio 0.8 (1.0-2.7) Urine Color Pale yellow Urine Appearance Clear Urine pH 6 (4.5-8.0) Urine Specific Bradford 1.010 (1.005-1.035) Urine Protein 2+ (NEGATIVE) Urine Glucose (UA) Negative (NEGATIVE) Urine Ketones Negative (NEGATIVE) Urine Blood Negative (NEGATIVE) Urine Nitrite Negative (NEGATIVE) Urine Bilirubin Negative (NEGATIVE) Urine Urobilinogen Normal MG/DL (0.0-1.0) Urine Leukocyte Esterase Negative (NEGATIVE) Urine RBC 0-2 /HPF (0 - 2) Urine WBC 0 /HPF (0 - 2) Urine Squamous Epithelial Cells Few /LPF (NONE/OCC) Urine Bacteria None /HPF (NONE) IMPRESSION CP possible ACS breast cancer PLAN care noted serial troponins monitor ECG CT chest negative dc home in am if stable impression, plan, and exam edited and reviewed in detail care discussed with Juan Johnson MD January 01, 2020 08:41
[2020-01-01] MEDS ORDERED: Meclizine 25mg tab ORAL PRN (09:30)
--- NOTE | 2020-01-01 15:46 | Diagnostic Imaging Report ---
EXAM: XR Chest, 1 View CLINICAL HISTORY: chest pain TECHNIQUE: Frontal view of the chest. COMPARISON: No relevant prior studies available. FINDINGS: Lungs: No evidence of airspace consolidation or acute interstitial abnormality. Pleural space: Unremarkable. No pneumothorax. Heart: Heart size top normal. Mediastinum: No mediastinal widening or shift. Bones/joints: Unremarkable. IMPRESSION: No acute cardiopulmonary abnormality.
[2020-01-02] VITALS: BP 134/62
[2020-01-02 04:00] VITALS: BP 130/57
[2020-01-02 08:00] VITALS: BP 122/49
--- NOTE | 2020-01-02 08:40 | General Progress Note ---
Assessment/Plan Assessment/Plan: IMPRESSION CP possible ACS breast cancer vertigo PLAN care noted serial troponins negative monitor ECG CT chest negative dc home in am if stable and MRI negative impression, plan, and exam edited and reviewed in detail care discussed with RN Subjective Allergies: Coded Allergies: No Known Allergies (Verified Allergy, Unknown, 05/30/10) Subjective double vision MRI pending Objective Last 24 Hour Vital Signs Date Time Temp Pulse Resp B/P (MAP) Pulse Ox O2 Delivery O2 Flow Rate FiO2 01/02/20 08:00 96.8 73 16 122/49 (73) 100 01/02/20 04:00 68 01/02/20 04:00 98.7 68 18 130/57 (81) 98 01/02/20 00:00 97.7 76 18 134/62 (86) 01/01/20 21:00 Room Air 01/01/20 20:00 66 01/01/20 20:00 97.9 70 18 134/54 (80) 98 01/01/20 16:28 69 01/01/20 16:00 97.7 70 20 121/57 (78) 95 01/01/20 12:00 98.1 62 20 146/51 (82) 95 01/01/20 10:07 Room Air Intake and Output 01/01/20 01/02/20 19:00 07:00 Intake Total 900 ml 100 ml Balance 900 ml 100 ml IV Total 900 ml 100 ml # Voids 1 Laboratory Tests 01/02/20 05:15: Troponin I 0.000 Height (Feet): 5 Height (Inches): 6.00 Weight (Pounds): 299 Objective WDWN NAD clear breath sounds bilaterally without rhonchi or wheeze [id number] without MRG NABS nontender no HSM no CCE nonfocal Juan Adames MD January 02, 2020 08:40
[2020-01-02] MEDS: Heparin 5000 units/ml inj SUBQ SCH ×2 (09:25→21:40)
[2020-01-02] MEDS: Aspirin EC 81mg tab ORAL SCH (09:25)
[2020-01-02] MEDS: Benazepril 10mg tab ORAL SCH (09:25)
--- NOTE | 2020-01-02 10:55 | Diagnostic Imaging Report ---
EXAM: MRI MRI Brain no Contrast COMPARISON: CT head 05/26/2018 HISTORY: Dizziness. Double vision. Nausea vomiting. TECHNIQUE: MR scan of the brain includes sagittal T1, axial T1, T2, FLAIR, diffusion-weighted and gradient sequences. FINDINGS: There is mild motion artifact. Mild white matter microangiopathic changes noted. There is no acute infarct, hemorrhage, mass effect or shift. Ventricles and cisterns appear unremarkable. Brainstem and posterior fossa appear unremarkable. The sella and parasellar regions are normal. Normal flow voids identified in the carotid siphons. Sinuses, mastoid air cells and bony calvarium are intact. IMPRESSION: MILD AGE-RELATED WHITE MATTER MICROCHIP AT CHANGES. NO ACUTE INTRACRANIAL ABNORMALITY.
[2020-01-02 12:00] VITALS: BP 128/51
[2020-01-02 15:53] VITALS: BP 112/46
[2020-01-02 20:00] VITALS: BP 125/52
[2020-01-03] VITALS: BP 125/56
[2020-01-03 04:00] VITALS: BP 118/51
--- NOTE | 2020-01-03 07:36 | Pulmonology Progress Note ---
Subjective ROS Limited/Unobtainable: No Allergies: Coded Allergies: No Known Allergies (Verified Allergy, Unknown, 05/30/10) Objective Last 24 Hour Vital Signs Date Time Temp Pulse Resp B/P (MAP) Pulse Ox O2 Delivery O2 Flow Rate FiO2 01/03/20 04:00 Room Air 01/03/20 04:00 96.6 67 18 118/51 (73) 98 01/03/20 04:00 65 01/03/20 00:00 Room Air 01/03/20 00:00 97.5 68 18 125/56 (79) 98 01/03/20 00:00 65 01/02/20 21:00 Room Air 01/02/20 20:00 97.5 69 18 125/52 (76) 98 01/02/20 20:00 67 01/02/20 16:03 60 01/02/20 15:53 97.5 69 18 112/46 (68) 96 01/02/20 12:00 97.7 76 18 128/51 (76) 100 01/02/20 11:34 60 01/02/20 09:25 122/49 01/02/20 09:00 Room Air 01/02/20 08:00 96.8 73 16 122/49 (73) 100 01/02/20 07:43 72 Intake and Output 01/02/20 01/03/20 19:00 07:00 Intake Total 2070 ml 1340 ml Output Total 900 ml Balance 1170 ml 1340 ml Intake Oral 870 ml 420 ml IV Total 1200 ml 920 ml Output Urine Total 900 ml # Voids 4 Laboratory Tests 01/02/20 12:45: Troponin I 0.000 01/02/20 20:40: Troponin I 0.000 01/03/20 03:40: Troponin I [Pending] Current Medications Medications (Trade) Dose Ordered Sig/Rosy Route PRN Reason Start Time Stop Time Status Last Admin Dose Admin Aspirin (Ecotrin) 81 mg DAILY ORAL 01/02/20 09:00 02/16/20 08:59 01/02/20 09:25 Atorvastatin Calcium (Lipitor) 10 mg BEDTIME ORAL 01/01/20 21:00 03/31/20 20:59 01/02/20 21:36 Benazepril HCl (Lotensin) 10 mg DAILY ORAL 01/02/20 09:00 02/01/20 08:59 01/02/20 09:25 Heparin Sodium (Porcine) (Heparin 5000 units/ml) 5,000 units Q12HR SUBQ 01/02/20 09:00 02/16/20 08:59 01/02/20 21:40 Meclizine HCl (Antivert) 25 mg Q6H PRN ORAL for dizziness 01/01/20 09:30 01/31/20 09:29 Ondansetron HCl (Zofran) 4 mg Q6H PRN IVP Nausea & Vomiting 01/01/20 09:30 01/31/20 09:29 01/02/20 09:39 Sodium Chloride 1,000 ml @ 100 mls/hr Q10H IV 01/01/20 09:30 01/31/20 09:29 01/03/20 01:30 Assessment/Plan Assessment/Plan Pulmonary Progress Note Assessment/Plan: IMPRESSION CP, CT negative for PE, Troponin negative possible ACS breast cancer vertigo double vision sill present PLAN Neurology, Cardiology Consultation care noted serial troponins negative monitor ECG CT chest negative dc home in am if stable and MRI negative impression, plan, and exam edited and reviewed in detail care discussed with RN Allergies: No Known Allergies (Verified Allergy, Unknown, 05/30/10) Subjective double vision MRI age related changes Objective Vital Signs Noted Laboratory Tests Noted 01/02/20 05:15: Troponin I 0.000 Height (Feet): 5 Height (Inches): 6.00 Weight (Pounds): 299 Objective WDWN NAD clear breath sounds bilaterally without rhonchi or wheeze [id number] 2/6/ ESM NABS nontender no HSM no CCE nonfocal Morgan Curiel MD January 03, 2020 07:36
[2020-01-03 08:00] VITALS: BP 123/51
[2020-01-03] MEDS: Benazepril 10mg tab ORAL SCH (08:40)
[2020-01-03] MEDS: Aspirin EC 81mg tab ORAL SCH (08:40)
[2020-01-03] MEDS: Heparin 5000 units/ml inj SUBQ SCH ×2 (08:44→21:40)
[2020-01-03] MEDS ORDERED: Gadavist 7.5mMol/7.5ml vial IV PRN (11:15)
[2020-01-03 11:34] LABS: ANION GAP 13 mmol/L (5-15); BLOOD UREA NITROGEN 12 mg/dL (7-18); CALCIUM 8.6 MG/DL (8.5-10.1); CARBON DIOXIDE 27 MMOL/L (21-32); CHLORIDE 101 MMOL/L (98-107); SODIUM 141 MMOL/L (136-145)
[2020-01-03 11:51] VITALS: BP 150/68
[2020-01-03 16:00] VITALS: BP 110/75
[2020-01-03 20:00] VITALS: BP 116/62
[2020-01-04] VITALS: BP 139/63
[2020-01-04 04:00] VITALS: BP 125/66
[2020-01-04 08:00] VITALS: BP 119/52
[2020-01-04] MEDS: Benazepril 10mg tab ORAL SCH (08:07)
[2020-01-04] MEDS: Aspirin EC 81mg tab ORAL SCH (08:08)
[2020-01-04] MEDS: Heparin 5000 units/ml inj SUBQ SCH ×2 (08:10→20:13)
[2020-01-04 12:00] VITALS: BP 112/47
--- NOTE | 2020-01-04 12:20 | Pulmonology Progress Note ---
Subjective ROS Limited/Unobtainable: No Allergies: Coded Allergies: No Known Allergies (Verified Allergy, Unknown, 05/30/10) Objective Last 24 Hour Vital Signs Date Time Temp Pulse Resp B/P (MAP) Pulse Ox O2 Delivery O2 Flow Rate FiO2 01/04/20 12:00 97.5 65 20 112/47 (68) 98 01/04/20 09:00 Room Air 01/04/20 08:07 119/52 01/04/20 08:00 75 01/04/20 08:00 97.7 71 18 119/52 (74) 97 01/04/20 04:00 96.6 89 18 125/66 (85) 99 01/04/20 04:00 64 01/04/20 00:00 97.5 76 18 139/63 (88) 96 01/04/20 00:00 70 01/03/20 21:00 Room Air 01/03/20 20:00 98.1 80 20 116/62 (80) 98 01/03/20 20:00 85 01/03/20 16:00 97.5 69 18 110/75 (87) 96 01/03/20 16:00 69 Intake and Output 01/03/20 01/04/20 19:00 07:00 Intake Total 1560 ml 1680 ml Output Total 300 ml Balance 1260 ml 1680 ml Intake Oral 360 ml 480 ml IV Total 1200 ml 1200 ml Output Urine Total 300 ml # Voids 2 4 Current Medications Medications (Trade) Dose Ordered Sig/Rosy Route PRN Reason Start Time Stop Time Status Last Admin Dose Admin Aspirin (Ecotrin) 81 mg DAILY ORAL 01/02/20 09:00 02/16/20 08:59 01/04/20 08:08 Atorvastatin Calcium (Lipitor) 10 mg BEDTIME ORAL 01/01/20 21:00 03/31/20 20:59 01/03/20 21:34 Benazepril HCl (Lotensin) 10 mg DAILY ORAL 01/02/20 09:00 02/01/20 08:59 01/04/20 08:07 Gadobutrol (Gadavist) 7.5 mmol NOW PRN IV Radiology Procedure 01/03/20 11:15 01/07/20 11:08 Heparin Sodium (Porcine) (Heparin 5000 units/ml) 5,000 units Q12HR SUBQ 01/02/20 09:00 02/16/20 08:59 01/04/20 08:10 Meclizine HCl (Antivert) 25 mg Q6H PRN ORAL for dizziness 01/01/20 09:30 01/31/20 09:29 Ondansetron HCl (Zofran) 4 mg Q6H PRN IVP Nausea & Vomiting 01/01/20 09:30 01/31/20 09:29 01/02/20 09:39 Sodium Chloride 1,000 ml @ 100 mls/hr Q10H IV 01/01/20 09:30 01/31/20 09:29 01/04/20 08:07 Assessment/Plan Assessment/Plan Pulmonary Progress Note Assessment/Plan: IMPRESSION CP, CT negative for PE, Troponin negative No chest pain breast cancer less dizzy Seen by Neurology - MRI reviewed, on ASA, PT pending PLAN Neurology, Cardiology Consultation pending (Dr Calle) care noted serial troponins negative monitor ECG CT chest negative dc home in am if stable and MRI negative impression, plan, and exam edited and reviewed in detail care discussed with RN Allergies: No Known Allergies (Verified Allergy, Unknown, 05/30/10) Subjective double vision MRI age related changes Objective Vital Signs Noted Laboratory Tests Noted 01/02/20 05:15: Troponin I 0.000 Height (Feet): 5 Height (Inches): 6.00 Weight (Pounds): 299 Objective WDWN NAD clear breath sounds bilaterally without rhonchi or wheeze [id number] NABS nontender no HSM no CCE nonfocal Morgan Curiel MD January 04, 2020 12:20
[2020-01-04] MEDS ORDERED: Miralax 17gm pkt ORAL PRN (15:00)
[2020-01-04 16:00] VITALS: BP 130/53
[2020-01-04] MEDS: Docusate 100mg cap ORAL SCH (17:24)
--- NOTE | 2020-01-04 17:45 | Progress Note ---
DATE: 01/04/2020 SUBJECTIVE: The patient is doing better. She denies any vertigo at this time. There is no hearing loss, tinnitus, dysarthria, dysphagia, facial pain, numbness, or weakness. However, she still has diplopia for distance, combination of vertical and horizontal. It is hard to say, which side is worse. PHYSICAL EXAMINATION: VITAL SIGNS: Blood pressure is 119/52, pulse is 71, temperature is 97.7 degrees, respiration rate is 18. MENTAL STATUS: Intact. CRANIAL NERVE EXAMINATION: CRANIAL NERVE II: Visual lind are intact to confrontation. Visual acuity not tested. CRANIAL NERVES III, IV AND : Extraocular motility was full. Some saccadic smooth pursuits on the right. No complaints of diplopia on extraocular motility testing. CRANIAL NERVE V: Facial and corneal sensations are intact to fine touch. CRANIAL NERVE VII: Facial strength is 5/5. CRANIAL NERVE VIII: Not tested. CRANIAL NERVE XI AND XII: Normal. MUSCLE EXAMINATION: Muscle bulk and tone are normal. Strength is 5/5 proximally and distally. REFLEXES: +1 in the upper extremities, 0 in the lower extremities. Downgoing toes and testing for Babinski response. COORDINATION: Uerqpq-vb-lbtj, aycd-qk-tnpc testing are intact. IMPRESSION: Vision is improved. She did not have her MRI scan yet. It was supposed to be done yesterday. She also has not had her physical therapy yet. PLAN: 1. MRI scan of the brain with contrast and MRA of the brain. 2. Begin physical therapy. 3. Continue aspirin. 4. Ophthalmology evaluation at some point. Matthieu Weston MD DR: THALIA JOB#: [id number] CC:
[2020-01-04 20:00] VITALS: BP 127/55
[2020-01-04 21:23] LABS: BASOPHILS % (AUTO) 1.2 % (0.0-2.0); EOSINOPHILS % (AUTO) 2.7 % (0.0-3.0); HEMATOCRIT 39.6 % (37.0-47.0); HEMOGLOBIN 12.2 G/DL (12.0-16.0); LYMPHOCYTES % (AUTO) 28.4 % (20.0-45.0); MEAN CORPUSCULAR VOLUME 84 FL (80-99); MONOCYTES % (AUTO) 6.9 % (1.0-10.0); NEUTROPHILS % (AUTO) 60.8 % (45.0-75.0); PLATELET COUNT 177 K/UL (150-450); RED BLOOD COUNT 4.72 M/UL (4.20-5.40); RED CELL DISTRIBUTION WIDTH 13.9 % (11.6-14.8); WHITE BLOOD COUNT 11.1 K/UL (4.8-10.8)
[2020-01-05] VITALS: BP 122/54
--- NOTE | 2020-01-05 01:15 | Consultation ---
DATE OF CONSULTATION: 01/04/2020 CARDIOLOGY CONSULT CONSULTING PHYSICIAN: Morgan Calle MD. REQUESTING PHYSICIAN: Juan Adames MD. REASON FOR CONSULTATION: Chest pain. HISTORY OF PRESENT ILLNESS: This is a 59-year-old female presented to the hospital several days ago with chest pain, nausea, vomiting, and dizziness. These symptoms awoke her from sleep. She also has had some leg swelling. The pain was epigastric and radiated to her throat. Since the initial hospital day, her symptoms have resolved and not recurred. She has had several negative troponin levels. The patient notes a history of breast cancer with recent mastectomies. She had a cardiac workup prior to that, which included an echocardiogram revealing aortic stenosis that has been followed serially as an outpatient and has not been recommended for intervention at this time. She also had an assessment of her coronary arteries with some kind of stress test prior to her surgery that did not result in any intervention either. PAST MEDICAL HISTORY: As noted above. ALLERGIES: None. MEDICATIONS: Reviewed. SOCIAL HISTORY: Nonsmoker, no alcohol or substance abuse. REVIEW OF SYSTEMS: Otherwise unremarkable. PHYSICAL EXAMINATION: VITAL SIGNS: Blood pressure 112/47, pulse 65, respiratory rate 20, afebrile. HEENT: Conjunctivae are pink. Oropharynx clear. NECK: Supple. No bruits. LUNGS: Clear. CARDIAC: Regular normal S1, S2 with no murmur, rub or gallop. ABDOMEN: Mildly obese and soft. EXTREMITIES: No edema. LABORATORY AND DIAGNOSTIC DATA: White count 11, hemoglobin 12. Chemistry panel within normal limits. Glucose 144, troponin negative x4. Echocardiogram reveals normal ejection fraction, mild to moderate aortic stenosis seen. EKG sinus rhythm at 70. No acute abnormalities. IMPRESSION: 1. Degenerative aortic valve disease, presently not of hemodynamic significance. 2. Anginal episode, resolved. 3. No evidence of flow-limiting coronary artery disease clinically based on recent outpatient workup. PLAN: 1. Maintain adequate hydration. 2. Avoid tight blood pressure control and orthostasis in this clinical setting. 3. Antiplatelet therapy. 4. Outpatient cardiology follow up with primary md senior research scientist, already scheduled for January 14, 2020. No other emergent diagnostic studies are presently planned. Morgan Calle M.D. DR: YENNI JOB#: [id number] CC:
[2020-01-05 04:00] VITALS: BP 133/53
[2020-01-05 08:00] VITALS: BP_SYST 116; BP_SYST 126; BP_DIAS 60; BP_DIAS 93
--- NOTE | 2020-01-05 08:19 | General Progress Note ---
Assessment/Plan Assessment/Plan: IMPRESSION CP possible ACS breast cancer vertigo PLAN care noted dc planning impression, plan, and exam edited and reviewed in detail care discussed with RN Subjective Allergies: Coded Allergies: No Known Allergies (Verified Allergy, Unknown, 05/30/10) Subjective weekend events reviewed Objective Last 24 Hour Vital Signs Date Time Temp Pulse Resp B/P (MAP) Pulse Ox O2 Delivery O2 Flow Rate FiO2 01/05/20 04:00 66 01/05/20 04:00 98.2 71 19 133/53 (79) 98 01/05/20 00:00 98.0 75 19 122/54 (76) 100 01/05/20 00:00 89 01/04/20 22:18 Room Air 01/04/20 21:00 Room Air 01/04/20 20:00 68 01/04/20 20:00 98.0 74 20 127/55 (79) 98 01/04/20 16:00 69 01/04/20 16:00 97.7 68 18 130/53 (78) 97 01/04/20 12:00 97.5 65 20 112/47 (68) 98 01/04/20 12:00 62 01/04/20 09:00 Room Air Intake and Output 01/04/20 01/05/20 19:00 07:00 Intake Total 1720 ml 900 ml Output Total 950 ml Balance 770 ml 900 ml Intake Oral 720 ml IV Total 1000 ml 900 ml Output Urine Total 950 ml # Voids 2 # Bowel Movements 2 5 Laboratory Tests 01/04/20 20:50: White Blood Count 11.1H, Red Blood Count 4.72, Hemoglobin 12.2, Hematocrit 39.6 , Mean Corpuscular Volume 84, Mean Corpuscular Hemoglobin 25.8L, Mean Corpuscular Hemoglobin Concent 30.7L, Red Cell Distribution Width 13.9, Platelet Count 177, Mean Platelet Volume 13.3H, Neutrophils (%) (Auto) 60.8, Lymphocytes (%) (Auto) 28.4, Monocytes (%) (Auto) 6.9, Eosinophils (%) (Auto) 2.7, Basophils (%) (Auto) 1.2 Height (Feet): 5 Height (Inches): 6.00 Weight (Pounds): 299 Objective WDWN NAD clear breath sounds bilaterally without rhonchi or wheeze [id number] without MRG NABS nontender no HSM no CCE nonfocal Juan Adames MD Jan 05, 2020 08:19
[2020-01-05] MEDS: Benazepril 10mg tab ORAL SCH (09:15)
[2020-01-05] MEDS: Docusate 100mg cap ORAL SCH ×2 (09:15→17:03)
[2020-01-05] MEDS: Aspirin EC 81mg tab ORAL SCH (09:15)
[2020-01-05] MEDS: Heparin 5000 units/ml inj SUBQ SCH (09:23)
--- NOTE | 2020-01-05 11:30 | Consultation ---
DATE OF CONSULTATION: 01/03/2020 NEUROLOGICAL CONSULTATION CHIEF COMPLAINT: This is one of several [facility] visits for this 59-year-old right-handed woman with past history of hypertension for 13 years, aortic stenosis, borderline high cholesterol, borderline diabetes, previous history of iron deficiency anemia, history of breast cancer, . The patient has a history of hypertension for 13 years balance problems but no previous history of vertigo. On Sunday, she developed acute chest pain with during the past week diplopia double vision . She was not sure which . The patient denied any dysarthria headaches diarrhea or abdominal pain. The patient is diagnosed with syndrome a few years ago hospital. She saw a neurologist at that time . She denies any history of smoking or alcohol use . She denies any sickle cell disease . There is no history of . The patient was admitted to the hospital. She had CBC, which revealed mild hypochromic anemia with normal platelet counts. The chemistries are pending. She had an EKG, which showed prolonged QT interval, which was initially normal . The chest x-ray normal heart sounds, otherwise was unremarkable. The patient had a chest CT angiogram on 01/01/2020, which revealed no evidence of pulmonary embolism, small hiatal hernia and some postsurgical changes consistent with bilateral mastectomies. The patient had an MRI scan of the brain yesterday, which revealed mild white matter microangiopathic changes noted. There is no acute infarct or hemorrhage. The study was basically intact. The patient had a previous head CT scan in the past on 05/26/2018, which was unremarkable. The patient was continued on her aspirin and atorvastatin 10 mg and given subcutaneous heparin and meclizine. She vomiting at this time. She was also getting Zofran. I was asked to see the patient because of her double vision. Her brother had a stroke and Parkinson disease and mother has epilepsy. . PAST MEDICAL HISTORY/PAST MEDICAL ILLNESSES: See above. ALLERGIES: She is allergic to pollen, . SOCIAL HISTORY: The patient is , has one child in good health. She is retired. SURGERIES: See above. She had bilateral mastectomies . Urinalysis was basically negative. She had a previous in 2010, which was negative as well as a thoracentesis at that time, which is seen in the chart. FAMILY HISTORY: Her mother of kidney failure and brother of asthma. REVIEW OF SYSTEMS: Her appetite is poor. . Weight is stable. She is 296 pounds and 5 feet 6 inches tall. The rest of the review of systems except for the above is noncontributory. There is no abdominal pain. PHYSICAL EXAMINATION: GENERAL: She is a well-developed, morbidly obese woman, lying in bed, in no acute distress. VITAL SIGNS: Blood pressure 123/51, temperature is 97.5 degree, pulse is 73, respiration rate is 18, pulse oximetry is 98% on room air. HEENT: Examination of the head is fairly unremarkable. NECK: There is some posterior cervical tenderness. No muscle spasm. Carotids are +2 with transmitted murmurs. LUNGS: Clear to auscultation. CARDIOVASCULAR: PMI was not felt. JVP was not visualized. The patient had good S1 and essentially holosystolic murmur loudest at the right second intercostal space midclavicular line radiating to the left sternal border. There is no S3 or S4 noted. ABDOMEN: Obese. No tenderness, masses, or organomegaly. Bowel sounds are intact. No organomegaly appreciated. BACK: There is no tenderness to percussion. EXTREMITIES: The extremities were unremarkable. NEUROLOGICAL EXAMINATION: MENTAL STATUS: She is alert and awake. Judgment is fair. Her affect is appropriate. Memory, past memory, her birthday 1960. Immediate recall is 3 out of 3 objects. Recent recall 0 out of 3 objects at 5 minutes. Intellect, similarities are mildly abstract, i.e., bicycle and you can travel . Orientation, date, she knew it is 01/03/2020. Place, she knew she was at the [facility], probably second floor. Person, she was oriented to person. Language function, spoken speech was fluent without paraphasias. Comprehension, repetition is intact. There is no right and left confusion. CRANIAL NERVE EXAMINATION: CRANIAL NERVES II: Visual lind are intact to confrontation. CRANIAL NERVES III, IV AND : Extraocular motility is full with no complaints of diplopia. . CRANIAL NERVE V: Corneal sensation intact to fine touch. CRANIAL NERVES VII: Facial strength is 5/5 bilaterally. CRANIAL NERVE VIII: Auditory acuity is intact bilaterally . CRANIAL NERVES IX AND X: Not tested. CRANIAL NERVE XI AND XII: Normal. MUSCLE EXAMINATION: Muscle bulk and tone are normal. Strength 5/5 proximally and distally without pronator drift with downgoing toes and testing for Babinski response. COORDINATION: Jqmabx-sh-mekd, sali-pm-xmjq testing, rapid alternating movements are normal. GAIT AND STATION: Not tested. SENSORY EXAMINATION: There is slight decreased vibration pinprick and fine touch. Proprioception intact. IMPRESSION: 1. The patient with diplopia function. deviation of the lymph nodes. . 2. The differential diagnosis is probably most likely . She has a history of vestibular problem in the past, but she has never had vertigo in the past. caused by a viral infection. I would be wary of the possibility of meningitis . No gadolinium was done on the MRI scan of the brain . The patient should have physical therapy with gait training. She should get better within the next several days. 3. She does not appear to have a brainstem infarction either in the lower or cerebellar infarct at this point, however, she should continue her aspirin. The labyrinthine infarction is possible, which would probably not show anything in the MRI scan. This will be due to a small labyrinthine artery infarct. PLAN: 1. Repeat MRI scan of the brain with contrast. 2. Physical therapy with gait training. 3. Continue her aspirin. Thank you for this interesting case. Matthieu MD En[place] DR: Holden JOB#: [id number] CC:
[2020-01-05 11:44] VITALS: BP 118/61
[2020-01-05 16:00] VITALS: BP 140/56
--- NOTE | 2020-01-05 16:01 | Diagnostic Imaging Report ---
Indication: Bubble vision, nausea and vomiting, history of breast carcinoma Technique: sagittal T1 fast spin echo, axial T1 and T2 FLAIR PROPELLER, axial T2 FS PROPELLER, T2* GRE, axial diffusion weighted images, post contrast axial and coronal T1 FLAIR PROPELLER images. ADC and exponential ADC maps generated Comparison: Noncontrast brain MRI dated 01/02/2020 Findings: . No abnormal areas of restricted diffusion to suggest acute infarction. No acute hemorrhage or edema. No mass effect nor midline shift. No abnormal contrast enhancement. Normal size ventricles and extra axial CSF spaces. Visualized orbits and sinuses are unremarkable. Compared to prior noncontrast study, no significant interim change. Impression: Negative
--- NOTE | 2020-01-06 07:48 | Discharge Summary ---
Discharge Summary Discharge Summary _ DATE OF ADMISSION: 01/01/2020 DATE OF DISCHARGE: 01/05/2020 DISCHARGED BY: Dr. Adames REASON FOR ADMISSION: 59 years old female with history of breast cancer, status post bilateral mastectomy, hypertension, presented with chief complaint of chest pain, associated with nausea , vomiting ,and dizziness for 1 day. She reported waking up feeling dizzy and subsequently had several episodes of nonbloody nonbilious vomiting. Patient also reported shortness of breath and generalized edema. Patient reported leg swelling. Patient also had epigastric pain radiating to her throat. No diaphoresis. No exertional component. Upon evaluation vital signs are stable. Laboratory work-up revealed no leukocytosis, stable hemoglobin, hematocrit, and platelet count. Troponin negative . EKG revealed sinus rhythm , no acute ischemic changes. Stable electrolytes. Stable LFT. Glucose within normal limits. Urinalysis revealed no evidence of urinary tract infection. Chest x-ray demonstrated no acute cardiopulmonary pathology. CT angio of the chest revealed no evidence of pulmonary embolism. Patient subsequently admitted for further management CONSULTANTS: maintainer operator neurologist Dr. Weston [facility] COURSE: Patient admitted to telemetry floor. Serial troponin were negative. EKG revealed no acute ischemic changes. Patient was ruled out for acute myocardial infarction. Echocardiogram demonstrated preserved ejection fraction with no evidence of wall motion abnormality. Per maintainer operator patient had anginal episode m which resolved. No evidence of flow-limiting coronary artery disease clinically , based on recent outpatient work-up. Patient was provided with antiplatelet therapy. Tight blood pressure control was avoided to prevent orthostasis. Adequate hydration was maintained. Patient to follow-up with outpatient maintainer operator ; scheduled already for January 13. No emergent diagnostic studies were necessary, as per maintainer operator. DVT prophylaxis provided. Pulse oximetry was stable on room air. Blood pressure was managed with PENNIE inhibitor. Statin continued. Neurologist seen and evaluated patient due to dizziness and complaint of double visiion. MRI of the brain revealed no acute intracranial abnormalities. Mild age related changes were noted. Patient was working with physical therapist. Supportive care provided. Patient clinically stabilized and was ready for discharge home. FINAL DIAGNOSES: Chest pain , possible acute coronary syndrome Anginal episode - resolved Degenerative aortic valve disease- not of hemodynamic significance Breast cancer, status post bilateral mastectomy Hypertension Vertigo DISCHARGE MEDICATIONS: See Medication Reconciliation list. DISCHARGE INSTRUCTIONS: Patient was discharged home. Patient to follow-up with her maintainer operator ; she already had appointment for January 13. I have been assigned to dictate discharge summary for this account. I was not involved in the patient's management. Belen Luna NP Jan 06, 2020 07:48
--- NOTE | 2020-01-07 12:02 | CDS Physician Query ---
Dear Juan Ambriz MD Date: 10/10/2019 Vp Of Product/CDS Name: Carlos Milligan Clinical Documentation Statement: "59-year-old female with a history of breast cancer status post bilateral mastectomy and history of hypertension. She presents with chief complaint of chest pain with nausea vomiting and dizziness, shortness of breath and weakness . " [H&P Juan Adames MD,12/23 08:41] Discharge Summary: Chest pain , possible acute coronary syndrome, Anginal episode, Degenerative aortic valve disease, Breast cancer, status post bilateral mastectomy, Hypertension, Vertigo Clinical Finding show: Calcium Level (12/31) : 8.1 mg/dl (8.5-10.1) Please clarify if the patient had of the following conditions based on the clinical findings: [ x] Hypocalcemia [ ] Findings are not significant [ ] Other explanation/comment Present on Admission: [x ] Yes [ ] No [ ] Clinically Undetermined Physician signature Date MTDD
[2020-01-23] MEDS ORDERED: ACETAMINOPHEN500 M3 ORAL (20:26)
[2020-01-23] MEDS ORDERED: AMOXICILLIN500 MG ORAL (20:26)
== END 2020-01-05 18:06 | disposition home or self-care (01) | DRG 198 ==
LOC: EMR 04:51 → OBSVTOIN 05:56 → 2E 05:56 → EDBEDREQ 05:56 → INTOOBSV 05:56 → EDBEDREQ 06:25
DX: I24.9 Acute ischemic heart disease, unspecified (principal); Z85.3 Personal history of malignant neoplasm of breast; E66.09 Other obesity due to excess calories; Z68.42 Body mass index [BMI] 45.0-49.9, adult; Z90.13 Acquired absence of bilateral breasts and nipples; I10 Essential (primary) hypertension; I25.119 Atherosclerotic heart disease of native coronary artery with unspecified angina pectoris; R42 Dizziness and giddiness; E66.01 Morbid (severe) obesity due to excess calories
CPT/HCPCS: 36415; 70551; 70553; 71045; 71275; 80048; 80053; 81003; 83880; 84484; 85025; 93005; 93306; 96374; 99285; A9585; J2405

== ENCOUNTER → 2020-01-23 | Emergency (ER) | payer MEDICAID ==
[~2020-01-23] VITALS: Ht 167.6 cm; Wt 131.5 kg
[~2020-01-23] MED LIST changes: +ACETAMINOPHEN500 M3 ORAL; +ASPIR 8181 MG ORAL
[2020-01-23 20:26] VITALS: BP 136/69
--- NOTE | 2020-01-23 20:28 | NUR ---
Nurse Note: Pt walked in c/o RT ear pain, sore throat, fever >100F at home. Pt denies shortness of breath, cough, chest pain. Pt stated unk cause and unk onset. No difficutly hearing.
--- NOTE | 2020-01-23 20:29 | Emergency Room Report ---
History of Present Illness General Chief Complaint: Flu Like Symptoms Source: Patient Present Illness HPI Patient is a 59-year-old female presents after increased right-sided ear pain as well as sore throat. Denies any cough. Denies any shortness of breath. Previous history of cardiac disease. Had recently been hospitalized. Fever up to 100.4. Denies any shortness of breath. Reports having some ear fullness. Denies any leg pain or swelling. Allergies: Uncoded Allergies: SEASONAL (Allergy, Unknown, 01/23/20) COVID-19 Screening Contact w/high risk pt: No Recent Travel to affected area: No Experienced COVID-19 symptoms?: Yes COVID-19 symptoms experienced: Fever (T>100.4F or >38C) COVID-19 Testing performed PLANT MAINTENANCE TECHNICIAN: No Patient History Past Medical History: see triage record Reviewed Nursing Documentation: PMH: Agreed; PSxH: Agreed Nursing Documentation-PMH Past Medical History: No Stated History Review of Systems All Other Systems: negative except mentioned in HPI Physical Exam Vital Signs Date Time Temp Pulse Resp B/P (MAP) Pulse Ox O2 Delivery O2 Flow Rate FiO2 01/23/20 20:21 99.0 88 16 136/69 (91) 98 Room Air General Appearance: well appearing, no apparent distress, alert, GCS 15, obese Head: normocephalic, atraumatic ENT: hearing grossly normal, normal voice, other - Right TM with fluid and bulging. Neck: full range of motion, supple Respiratory: chest non-tender, lungs clear, normal breath sounds, no respiratory distress, speaking full sentences Cardiovascular #1: normal inspection, edema - Trace edema Gastrointestinal: normal inspection, normal bowel sounds, non tender, soft Musculoskeletal: normal inspection, no calf tenderness Neurologic: alert, motor strength/tone normal, textile designs sales representative III-XII nml as tested, oriented x3, normal gait Psychiatric: mood/affect normal Skin: no rash Medical Decision Making Diagnostic Impression: Primary Impression: Right otitis media ER Course Patient presented for earache. Differential diagnosis include was not limited to pneumonia, otitis media, otitis externa, mastoiditis among others. Patient has a benign exam and does not appear to require any imaging or laboratory testing at this time. Patient does not appear to have any acute coronary issues at this time. She denies any shortness of breath or cough. Patient was advised outpatient coronavirus testing. Patient was offered laboratory testing and declined. Does not appear to have coronavirus symptomatology at this time other than earache. Patient does appear to have some infection in the right ear. She will be given prescription for amoxicillin. She is advised to follow- up for recheck and to return if she began having any worsening condition or other concerns. Last Vital Signs Date Time Temp Pulse Resp B/P (MAP) Pulse Ox O2 Delivery O2 Flow Rate FiO2 01/23/20 20:21 99.0 88 16 136/69 (91) 98 Room Air Status: improved Disposition: HOME, SELF-CARE Condition: Stable Scripts Amoxicillin* (AMOXIL*) 500 Mg Capsule 500 MG ORAL THREE TIMES A DAY, #21 CAP Prov: Daniel Hoang MD 01/23/20 Acetaminophen* (ACETAMINOPHEN EXTRA STRENGTH*) 500 Mg Tablet 500 MG ORAL Q8H PRN for Fever/Headache/Mild Pain, #30 TAB Prov: Daniel Hoang MD 01/23/20 Patient Instructions: Otitis Media, Adult Daniel Hoang MD Jan 23, 2020 20:29
[2020-01-23 20:35] VITALS: BP 136/69
--- NOTE | 2020-01-23 20:35 | NUR ---
ED Nurse Note: Pt cleared by health care Provider for discharge. DC instructions/prescription was given and explained to pt and verbalized understanding of teachings. Instructed pt to follow up with primary care physcian within 3-7 days. All medical deviecs such as ID band removed. Pt is AAO x4, ambulatory and left with all personal belongings.
== END | disposition home or self-care (01) ==
LOC: EDUNIT# 20:19 → EDBD 20:35 → EMR 22:06
DX: H66.91 Otitis media, unspecified, right ear (principal); J30.2 Other seasonal allergic rhinitis
CPT/HCPCS: 99282